=== PATIENT | female | born 2000 | race Caucasian/White ===

== ENCOUNTER 2025-03-09 08:49 | Emergency (ER) | payer BC, SELFPAY ==
[2025-03-09 08:59] VITALS: BP 131/82; PULSE 98; RESP 20; TEMP 36.3; O2SAT 95; BMI 34.5
[2025-03-09 09:13] LABS: Appearance Urine Cloudy (Clear)
[2025-03-09 09:30] LABS: Ammon Biurate Crystals Urine Few; Ur HCG Qualitative* Negative (Negative)
[2025-03-09 09:49] LABS: PCR FLU A Negative PCR FLU A (Negative); PCR FLU B Negative PCR FLU B (Negative); PCR RSV Negative PCR RSV (Negative); SARS PCR* Negative SARS-CoV-2 (Negative)
--- NOTE | 2025-03-09 09:56 | ED_ITS ---
HPI - Abdominal Pain General Time Seen by Provider: 09:56 Date Seen: 03/09/25 Chief Complaint: Abdominal Pain Stated Complaint: Abdominal pain, vomiting Time Seen by Provider: 03/09/25 09:31 Source: patient and RN notes reviewed Mode of arrival: ambulatory Limitations: no limitations History of Present Illness HPI narrative: This 24-year-old female is presenting with vomiting and diarrhea, chills and sweats since this past Sunday, today is Sunday. She states she is unable to eat and drink or take any medicines. Patient believes she may have picked this up at [employer], went Sunday after work and did not wait the cart down. Symptoms started after that. Once she noted a little streaking of blood during a forceful emesis but otherwise has not noted any ongoing him at emesis. No blood in the diarrhea. She does have some abdominal discomfort but not severe, more of a cramping. She urinated this morning, no dysuria. She has had sweats and felt hot, has not actually checked her temperature. She is not aware of any definite ill contacts, no one else around her is getting sick with this. She has had no recent travel, no recent antibiotics, no history of C difficile. She has had no prior abdominal surgery. She states she was recently diagnosed with fatty liver disease. Patient states she just wants to be able to eat. She is on no chronic medications, does take some vitamins but has not been able to keep them down. Related Data Previous Rx's ?Medication ?Instructions ?Recorded ondansetron 4 mg disintegrating 4 mg PO Q6H PRN nausea and 03/09/25 tablet vomiting #20 tabs Allergies Allergy/AdvReac Type Severity Reaction Status Date / Time No Known Drug Allergies Allergy Verified 03/09/25 09:02 Review of Systems Status of ROS Reports: 6 or more systems reviewed and unremarkable except as noted in History and below [facility] Medical History (Updated 03/09/25 @ 12:06 by Eylse Mcintyre MD) Hepatic steatosis ?K76.0 - Fatty (change of) liver, not elsewhere classified (ICD-10) Social History Smoking Status: Never smoker Do you use any of these nicotine containing products: None Second hand tobacco smoke exposure: No How often do you have a drink containing alcohol: never AUDIT-C Alcohol total score: 0 Non-prescribed substance use: denies use Exam Const: Vital Signs, click to edit/add: Vital Signs - 24 hr 03/09/25 08:59 Temperature 97.4 F L Pulse Rate [Pulse Oximeter] 98 Respiratory Rate 20 Blood Pressure [Ri ght Upper Arm] 131/82 Pulse Oximetry 95 Oxygen Delivery Me thod Room Air This 24-year-old female is seen in exam room 1, she is lying in the bed, sitting up and alert, interactive, no apparent distress. Sclera clear, symmetrical facial function, speech normal. Lips are normal, oropharynx is glistening, does not look severely dehydrated. Neck is supple. Lungs clear come good air entry come wheezing or crackles, no tachypnea. CV regular rate and rhythm, no murmur, normal S1-S2. Abdomen is soft, nondistended, nontender, no organomegaly, no rebound or guarding, bowel sounds are present. Skin visualized without any jaundice or rash. Documenting provider has reviewed patient's vital signs: yes Course Course ED Course: This 24-year-old female is presenting with symptoms that seem to be consistent with probable viral gastroenteritis. We will check labs, initiate IV fluids for rehydration and give her a dose of Zofran. We did review if her white count is not concerning, inflammatory markers without significant elevation, will proceed with flat and upright. Otherwise may need to consider abdominal imaging if white count is significantly elevated to look for such things as colitis. Doubt any ischemic bowel in this patient given her age, clinical exam. She does not have any concerning vascular history at her age that would suggest ischemic bowel. More likely to be a viral gastroenteritis. Reevaluation(s) Time of Reevaluation #1: 11:06 Reevaluation #1: Have reviewed patient's white blood count and electrolytes. Her C reactive protein is normal, white blood count low which would be more indicative of viral etiology. Will proceed with flat and upright abdominal imaging, do not feel CT imaging is necessary and on potentiates further risk to this patient with unnecessary radiation. Time of Reevaluation #2: 12:01 Reevaluation #2: Reviewed with patient that her labs are reassuring, white blood count is low which would go with viral etiology. Her C reactive protein and electrolytes are reassuring. She feels much better after the fluids, states she does not feel sweating anymore. She is adamant that she is not constipated. We did review that her abdominal x-ray is showing some stool forming in the right colon. It is possible that she could have more diarrhea or that the diarrhea is going to start abating and she will feel better in go back to normal stools. She would like Zofran sent to her pharmacy, will try to initiate clear liquids with the use of Zofran and advancing her diet as tolerated. She does not have any indications for hospitalization or further workup at this time. We have discussed signs and symptoms for return. Vital Signs Vital signs: Initial Vital Signs Temperature 97.4 F L 03/09/25 08:59 Temperature Source Temporal Artery Scan 03/09/25 08:59 Pulse Rate 98 03/09/25 08:59 Respiratory Rate 20 03/09/25 08:59 Blood Pressure 131/82 03/09/25 08:59 Blood Pressure Mean 98 03/09/25 08:59 Blood Pressure Position Sitting 03/09/25 08:59 Pulse Oximetry 95 03/09/25 08:59 Oxygen Delivery Method Room Air 03/09/25 08:59 Vital Signs Temperature 97.4 F L 03/09/25 08:59 Pulse Rate 98 03/09/25 08:59 Respiratory Rate 20 03/09/25 08:59 Blood Pressure 131/82 03/09/25 08:59 Pulse Oximetry 95 03/09/25 08:59 Oxygen Delivery Method Room Air 03/09/25 08:59 Temperature 97.4 F L 03/09/25 08:59 Pulse Rate 98 03/09/25 08:59 Respiratory Rate 20 03/09/25 08:59 Blood Pressure 131/82 03/09/25 08:59 Pulse Oximetry 95 03/09/25 08:59 Oxygen Delivery Method Room Air 03/09/25 08:59 Medications Administered Medications: Discontinued Medications Generic Name Dose Route Start Last Admin Trade Name Freq PRN Reason Stop Dose Admin Sodium Chloride 1,000 mls @ 1,000 mls/hr 03/09/25 10:04 03/09/25 11:24 0.9 % Sodium Chloride 1000 Ml IV 03/09/25 11:03 Infused .Q1H KARLENE Infusion Ondansetron HCl 4 mg 03/09/25 10:03 03/09/25 10:18 Ondansetron 2 Mg/Ml Inj IVP 03/09/25 10:04 4 mg ONCE ONE Administration MDM - Abdominal Pain Lab Data Attestation: I reviewed the patient's lab results. Labs: Lab Results 03/09/25 03/09/25 03/09/25 Range/Units 09:02 09:05 10:17 WBC 3.31 L (4.50-11.00) K/uL RBC 5.19 (4.00-5.20) m/uL Hgb 14.3 (12.0-16.0) gm/dL Hct 43.4 (33.0-51.0) % MCV 84 (80-100) fL MCH 28 (26-34) pg MCHC 33 (32-36) gm/dL RDW Coeff of Edson 13.0 (11.5-15.5) % Plt Count 175 (140-440) K/uL Neut % (Auto) 45.9 (42.0-72.0) % Lymph % (Auto) 39.9 (20-44) % Evans % (Auto) 12.1 H (0.0-11.0) % Eos % (Auto) 1.2 (0.0-7.0) % Baso % (Auto) 0.6 (0.0-3.0) % Neut # (Auto) 1.50 L (1.7-7.0) K/uL Lymph # (Auto) 1.30 (0.90-2.90) K/uL Evans # (Auto) 0.40 (0.00-0.90) K/UL Eos # (Auto) 0.00 (0.00-0.50) K/uL Baso # (Auto) 0.00 (0.00-0.30) K/uL Abs Immat Gran (auto) 0.00 (0.00-0.30) K/uL Imm/Tot Granulo (auto) 0.3 % Sodium 134 L (135-149) mmol/L Potassium 3.8 (3.6-5.1) mmol/L Chloride 100 (96-114) mmol/L Carbon Dioxide 24 (20-32) mmol/L Anion Gap 10 (7-15) mEq/L BUN 6 (5-24) mg/dL Creatinine 0.7 (0.5-1.5) mg/dL Estimated Creat Clear 115.01 Estimated GFR 123 ml/min Glucose 93 (60-115) mg/dL Lactate 0.7 (0.5-1.9) mmol/L Calcium 8.6 (8.4-10.6) mg/dL Total Bilirubin 0.4 (0.1-1.5) mg/dL AST 32 (12-35) U/L ALT 31 (4-35) U/L Alkaline Phosphatase 64 (40-150) U/L C-Reactive Protein 0.8 (0.5-1.0) mg/dL Total Protein 7.5 (6.0-8.3) g/dL Albumin 4.3 (3.3-5.0) g/dL Urine Color Dark yellow (Yellow) Urine Appearance Cloudy A (Clear) Urine pH 5.5 (5.0-8.5) Ur Specific Conway >= 1.030 (1.000-1.030) Urine Protein 3+ A (Negative) Urine Glucose (UA) Negative (Negative) Urine Ketones Negative (Negative) Urine Blood 2+ A (Negative) Urine Nitrite Negative (Negative) Urine Bilirubin Negative (Negative) Urine Urobilinogen 0.2 (0.2-1.0) Ur Leukocyte Esterase Negative (Negative) Urine RBC 5-10 A (0-2) Urine WBC 2-5 (0-5) Ur Squamous Epith Cells Moderate A (None-Few) Broussard Biurate Crystals Few A (None) Urine Bacteria Moderate A (None) Urine Mucus Few A (None) Urine HCG, Qual Negative (Negative) SARS-CoV-2 (PCR) Negative SARS-CoV-2 (Negative) Influenza Type A (PCR) Negative PCR FLU A (Negative) Influenza Type B (PCR) Negative PCR FLU B (Negative) RSV (PCR) Negative PCR RSV (Negative) Imaging Data Abdominal x-ray: Attestation: I have reviewed the pertinent imaging results. Radiologist's impression: Patient: JOSE A OJEDA Facility:?[facility] Patient ID:?[id number] Site Patient ID:?[id number]. Site :?[id number] Study:?XRay-Abdomen flat/upright-03/09/2025 11:22:27 AM Ordering Physician:Kang Pappas Final Report: Indication: N/V/D Technique: 2 AP views of the abdomen. Three total images. Comparison: None. Findings: Moderate stool burden is seen in the right colon. Nonobstructive bowel gas pattern. No large pneumoperitoneum. Visualized lung bases are clear. Impression: Moderate stool burden is seen in the right colon. Nonobstructive bowel gas pattern. Dictated by Julio Parra MD @ 03/09/2025 11:40:49 AM (Electronic Signature) Discharge Plan Discharge Clinical Impression: Nausea, vomiting, and diarrhea Patient Disposition: Home, Self-Care Condition: Stable Instructions: Acute Nausea and Vomiting (ED), Acute Diarrhea (ED), Nutrition Tips for Relief of Diarrhea (ED) Additional Instructions: You very likely have a viral gastrointestinal illness causing her symptoms. Use the Zofran per prescription to allow you to taking clear liquids to start with. As you are feeling better, can advance your diet back to normal. Would avoid any antidiarrheals until a week of symptoms have gone by. If you are not improving in the next few days, have increased abdominal pain associated with further vomiting or with development of fever, need to seek re-evaluation. Activity Level: Activity as Tolerated Prescriptions: New ondansetron 4 mg tablet,disintegrating 4 mg PO Q6H PRN (Reason: nausea and vomiting) Qty: 20 0RF Follow Up/Referrals: Provider,Not a Local [Primary Care Provider, Family Practice] Stand Alone Forms: [facility] Info Instructions
[2025-03-09] MEDS: ONDANSETRON 2 MG/ML inj 4 MG IVP (10:18)
[2025-03-09 10:26] LABS: Lactate* 0.7 mmol/L (0.5-1.9)
[2025-03-09 10:27] LABS: Hematocrit* 43.4 % (33.0-51.0); Hemoglobin* 14.3 gm/dL (12.0-16.0); Immature Granulocytes Pct Auto 0.3 %; Mean Corpuscular HGB Conc 33 gm/dL (32-36); Mean Corpuscular Hemoglobin 28 pg (26-34); Mean Corpuscular Volume 84 fL (80-100); RDW Coefficient of Variation % 13.0 % (11.5-15.5); Red Blood Count* 5.19 m/uL (4.00-5.20); White Blood Count* 3.31 K/uL (4.50-11.00)
--- OUTSIDE RECORDS SUMMARY | 2025-03-09 10:43 | XMS_ITS | Clinical Summary ---
Author Organization [facility] Address [address] [place] [id number] Care Team Providers Care Precision Dancer Name Role Phone Cris Juarez MD Primary Care Provide r Brandan Meneses MD Unavailable [phone] Leonie Matthew RN Unavailable [phone] Unavailable [phone] Allergies Active Allergy Reactions Criticality Noted Date Comments Ibuprofen Dizziness,Syncope Low 04/17/2017 Wants removed Medications fluocinonide 0.05 TOPICAL (LIDEX) 0.05 % external solutionIndicat ions:Seborrheic dermatitis Apply topically to affected area(s) two times daily. 60 mL 3 4 Active CPAPIndications :JOSE CARLOS (obstructive sleep apnea) RESMED CPAP (E0601) machine for home use at pressure: 5-15cmw, Choice of mask (A7030 or A7034) w/full face cushion (A7031) x1/mo, nasal cushion (A7032) x2/mo, or nasal pillows (A7033) x 2/mo; Length of Need: 99 months; Frequency of use: Daily 1 Each 5 Active ketoconazole 2% shampoo (NIZORAL) 2 % shampooIndicati ons:Dry scalp,Seborrhei c dermatitis Apply topically to affected area(s) once daily if needed for Dry Scalp. 2-3 times per week 120 mL 5 4 02/09/20 25 Discontinu ed(*Med complete/R egimen complete/L evel of care change) Hospital, Clinic, or Other Facility Administered Medication Ordered Dose Route Frequency Start Date End Date Status etonogestrel subdermal implant (NEXPLANON) 1 EachIndications:Uses contraception 1 Each Sdrm Q 3 YEARS 10/01/2020 Active Active Problems Problem Noted Date Diagnosed Date Hepatic steatosis 02/24/2025 Cervical cancer screening 03/27/2024 Overview (03/27/2024): 03/2024 NIL Plan: HPV based testing in 3 years 02/02/2020 Overview (08/06/2020): Component Latest Ref Rng & Units 08/02/2020 Vaginal/Rectal OB Strep B PCR Positive (A) Estimated Date of Delivery: 09/07/20 Patient's last menstrual period was 12/02/2019 (exact date). Last Tdap- 06/23/2020 Last Flu vaccine- 03/02/2015 Glucose (GTT) result- Component Latest Ref Rng & Units 05/26/2020 GLUCOSE,GESTATIONAL 65 - 139 mg/dL 65 20 week US: FINDINGS: Sonographic imaging demonstrates a single living intrauterine gestation. Fetus demonstrates a regular cardiac rate of 141 beats per minute. Fetus has a vertex position. The placenta lies anteriorly without evidence of placenta previa. Amniotic fluid volume appears normal. Single deepest vertical pocket: 4.9 cm. The cervix is closed and measures 3.7 cm in length. The composite ultrasound gestational age is calculated at 20 weeks 3 days with an estimated sonographic due date of 08/27/2020. Allergies Allergen Reactions Motrin [Ibuprofen] Syncope OB History Para Term AB Living 1 0 0 0 0 0 SAB TAB Ectopic Multiple Live Births 0 0 0 0 0 # Outcome Date GA Lbr Chad/2nd Weight Sex Delivery Anes PTL Lv 1 Current Create lab flowsheet for OB labs- Component Latest Ref Rng & Units 01/13/2020 01/13/2020 01/13/2020 3:51 PM 3:51 PM 3:51 PM ANTIBODY SCREEN Negative Negative SPECIMEN EXPIRATION DATE/TIME 01/16/20 23:59 HEMOGLOBIN 12.0 - 16.0 g/dL 13.4 MCV 80 - 100 fL 84 PLATELET COUNT 140 - 440 thou/cu mm 231 MPV 6.5 - 11.0 fL 10.3 RUBELLA IGG ANTIBODY Positive 11.00 HEMOGLOBIN A1C SCREENING <=6.4 % 4.9 ABORH B Rh Positive HBSAG Nonreactive Nonreactive HEPATITIS C ANTIBODY Non-Reactive Non-Reactive HIV-1/HIV-2 ANTIBODY Non-Reactive Non-Reactive TREPONEMA PALLIDUM Negative Negative Past Medical History: . Date Luis A-Schlatter's disease 06/05/2014 No past surgical history on file. No data on file. Problems (from 01/13/20 to present) No problems associated with this episode. RADHA Carrasco.....02/02/2020 11:20 AM Aspiration pneumonitis 08/31/2019 Pain of right patellofemoral joint 06/13/2016 Irregular menses 08/03/2015 [place]-Schlatter's disease 06/05/2014 Accidental drug overdose Resolved Problems Problem Noted Date Diagnosed Date Resolved Date Acute respiratory failure with hypoxemia 08/31/2019 08/02/2020 Heroin overdose 08/30/2019 01/04/2024 Patellar tendinitis, right knee 12/07/2015 06/13/2016 Encounters Date Type Department Care Team Description 03/06/2025 2:00 PM HEALTH ANALYTICS CONSULTANT Telemedicine [facility] Weight Management [address] [place] [phone] Peggy Saldaña RD Medical Nutrition Therapy (SWL follow up ) 03/06/2025 Travel 02/24/2025 Orders Only [facility] [address] [facility] [address] [place] [address] Brandan Meneses MD Weight; Lab 02/20/2025 2:45 PM HEALTH ANALYTICS CONSULTANT Orders Only [facility] [address] [facility] [place] [phone] Karissa Gamez <No scans attached> 02/20/2025 8:15 AM HEALTH ANALYTICS CONSULTANT Ancillary Procedure [facility] [address] [place] [address] 02/20/2025 Travel 02/17/2025 11:15 AM HEALTH ANALYTICS CONSULTANT Telemedicine [facility] [address] [facility] [address] [place] [address] Sav Minor, PhD, Mental Health Intake 02/03/2025 2:00 PM CDT Telemedicine [facility] [address] [place] [address] [address] [place] [address] Peggy Saldaña RD Medical Nutrition Therapy (SWL initial ) 02/03/2025 1:30 PM CDT Phone Office Visit [address] [address] Leonie Matthew, GANESH Education (Initial Nurse) 02/03/2025 1:00 PM CDT Telemedicine [address] [place] [address] Brandan Meneses MD Consult (Initial- SWL, gastric bypass) 02/03/2025 Travel 01/01/[address] [address] Brandan Meneses MD Bariatric Insurance Verification/Requi rements 12/16/2024 9:30 AM CDT Telemedicine [facility] [address] [place] [address] Marcos Santizo MD Sleep Consult; Telehealth (Virtual visit, no vitals taken.) 12/08/2024 7:30 AM CDT Nurse/Clinic Staff Only [facility] [address] [place] [address] Testing (HST return) 12/08/2024 Telephone [facility] [address] [place] [address] Marcos Santizo MD Testing 12/08/2024 Travel from Last 3 Months Immunizations Immunization Administration Dates Next Due DTaP 10/23/2003, 3,02/15/2002,02/15 HPV 9 (Gardasil 9) 07/07/2016,04/06/2015, 015 Hepatitis A (Peds) 04/06/2015,03/02/2015 Hepatitis B (Peds) 12/29/2002,02/14/2002, 000 Inactivated Polio Vaccine 04/06/2015,,02/15/2002,02/15 Influenza A (H1N1), Inactivated 04/01/2009,03/04 Influenza, IIV4 03/02/2022,03/02/2015 MENINGOCOCCAL VACCINE 2 VIAL [id number] (MENVEO) 01/12/2012 MMR 01/12/2012,12/30/2002 Tdap 06/23/2020,01/12/2012 Varicella Vaccine 01/12/2012,12/17/2003 Family History Medical History Relation Name Comments Anxiety disorder Brother Depression Brother Anxiety disorder Father Drug Abuse Father Relation Name Status Comments Brother Father Social History Tobacco Use Types Packs/Day Years Used Date Smoking Tobacco: Former Cigarettes Q uit: 02/14/2019 Smokeless Tobacco: Never Tobacco Cessation:Counseling Given: Not Answered Alcohol Use Standard Drinks/Week Comments No 0 (1 standard drink = 0.6 oz pur e alcohol) 4 beers once a month PHQ-2 Answer Date Recorded PHQ-2 TOTAL SCORE 0 03/18/2024 Social Connections Answer Date Recorded Do you often feel lonely or isolated from those around you? 0 03/18/2024 Alcohol Use Answer Date Recorded How often do you have a drink containing alcohol ? 2 02/03/2025 Average Number of Drinks Not on file 025 Frequency of Binge Drinking Not on file 01/15 Financial Resource Strain Answer Date R ecorded Difficulty of Paying Living Expenses 3 03/18/2024 Difficulty of Paying Living Expenses Not on file 03/18/2024 Food Insecurity Answer Date Recorded Do you worry your food will run out before you are able to buy more? 1 03/18/2024 Transportation Needs Answer Date Record ed Does lack of transportation keep you from medica l appointments? 1 03/18/2024 Does lack of transportation keep you from work, meetings or getting things that you need? 1 03/18/2024 Housing Stability Answer Date Recorded What is your housing situation today? 1 03/18/2024 Utilities Answer Date Recorded Do you have trouble paying f or utilities (for example, heat, electricity, water, phone)? 1 03/18/2024 Comments No Sex and Gender Information Value Date Recorded Sex Assigned at Not on file Legal Sex Female 5:41 AM HEALTH ANALYTICS CONSULTANT Gender Identity Not on file Sexual Orientation Not on file Obstetrics History Para Term AB IAB SAB Ectopic Multiple Livin g Live Births 1 0 0 0 0 0 0 0 0 0 0 Date Outcome GA Total Labor Labor/2nd/3rd Weight Sex Type Anes PTL Rosemarie A1 A5 Name Clin Last Filed Vital Signs Vital Sign Reading Time Taken Comments Blood Pressure 117/74 03/18/2024 3:31 PM HEALTH ANALYTICS CONSULTANT Pulse 74 03/18/2024 3:31 PM HEALTH ANALYTICS CONSULTANT Temperature 36.5 C (97.7 F) 02/28/2021 10:01 AM HEALTH ANALYTICS CONSULTANT Respiratory Rate 16 09/03/2019 12:00 PM CDT Oxygen Saturation 99% 03/18/2024 3:31 PM HEALTH ANALYTICS CONSULTANT Inhaled Oxygen Concentration - - Weight 104.3 kg (230 lb) 02/03/2025 2:00 PM CDT Height 165.1 cm (5' 5) 03/06/2025 1:00 PM HEALTH ANALYTICS CONSULTANT Body Mass Index 38.27 02/03/2025 2:00 PM CDT Plan of Treatment Upcoming Encounters Date Type Department Care Team (Late st Contact Info) Description 03/23/2025 2:30 PM HEALTH ANALYTICS CONSULTANT Office Visit [facility] [address] [place] [address] Marcos Santizo MD [address] [place] [address] 04/06/2025 3:00 PM HEALTH ANALYTICS CONSULTANT Telemedicine [facility] Weight Management - [place] [address] [place] [phone] Peggy Saldaña, PHI [address] [place], [place] [phone] 05/08/2025 2:30 PM HEALTH ANALYTICS CONSULTANT Telemedicine [facility] Weight Management - [place] [address] [place] [phone] Peggy Saldaña, PHI [address] [place], [place] [phone] Health Maintenance Due Date Last Done Comments Influenza Vaccine (#1) 2024 03/02/2022, 2014 Depression screening for age 12+ 03/18/2025 03/18/2024, 03/20/2023, 10/14/2021, Additional history exists BMI (ht and wt on same day) for age 18+ 02/03/2026 02/03/2025, 02/03/2025, 01/30/2025, Additional history exists Pap test for age 21-65 03/18/2027 03/18/2024 Tetanus booster 06/23/2030 06/23/2020, 01/12/2012 RSV vaccine for adults or (1 - 1-dose 75+ series) 07/30/2074 Hepatitis B series for 19+ Completed 12/29, 02/14/2002, 02/16/2000 HPV series for age 9-45 Completed 07/08/19 17, 04/06/2015, 03/02/2015 HIV for age 15-65 Completed 03/18/2024, , 06/23/2020, Additional history exists Hepatitis C screening for age 18-79 Completed 03/18/2024, 01/13/2020, 10/23/2019, Additional history exists Pneumococcal series for age 6-49 Aged Out No longer eligible based on patient's age to complete this topic Procedures Procedure Name Priority Date/Time Associated Diagnosis Comments VITAMIN D 25 (DEFICIENCY) Routine 02/20/2025 2:53 PM HEALTH ANALYTICS CONSULTANT Screening for endocrine, metabolic and immunity disorder VITAMIN B12 Routine 02/20/2025 2:53 PM HEALTH ANALYTICS CONSULTANT Screening for endocrine, metabolic and immunity disorder TSH Routine 02/20/2025 2:53 PM HEALTH ANALYTICS CONSULTANT Screening for endocrine, metabolic and immunity disorder LIPID PANEL W REFLEX MEASURED LDL Routine 02/20/2025 2:53 PM HEALTH ANALYTICS CONSULTANT Screening for endocrine, metabolic and immunity disorder IRON PLUS IRON BINDING CAP Routine 02/20/2025 2:53 PM HEALTH ANALYTICS CONSULTANT Screening for endocrine, metabolic and immunity disorder INSULIN Routine 02/20/2025 2:53 PM HEALTH ANALYTICS CONSULTANT Screening for endocrine, metabolic and immunity disorder HEMOGLOBIN A1C Routine 02/20/2025 2:53 PM HEALTH ANALYTICS CONSULTANT Screening for endocrine, metabolic and immunity disorder FERRITIN Routine 02/20/2025 2:53 PM HEALTH ANALYTICS CONSULTANT Screening for endocrine, metabolic and immunity disorder COMP METABOLIC PANEL Routine 02/20/2025 2:53 PM HEALTH ANALYTICS CONSULTANT Obesity, unspecified class, unspecified obesity type, unspecified whether serious comorbidity present Screening for endocrine, metabolic and immunity disorder CBC AND DIFF NO PLT Routine 02/20/2025 2 :53 PM HEALTH ANALYTICS CONSULTANT Screening for endocrine, metabolic and immunity disorder US ABDOMEN LIMITED GALLBLADDER Routine 02/20/2025 9:37 AM HEALTH ANALYTICS CONSULTANT Gastroesophageal reflux disease, unspecified whether esophagitis present Vomiting, unspecified vomiting type, unspecified whether nausea present H[employer]EL FR[employer] OFFICE MANAGER THIN PREP PAP SCREEN IMAGED Routine 03/18/2024 4:56 PM HEALTH ANALYTICS CONSULTANT Pap smear for cervical cancer screening ANTI HIV 1/2 Routine 03/18/2024 4:52 PM HEALTH ANALYTICS CONSULTANT Screen for STD (sexually transmitted disease) ANTI HCV Routine 03/18/2024 4:52 PM HEALTH ANALYTICS CONSULTANT Screen for STD (sexually transmitted disease) from Last 3 Months or Most Recently Relevant to Health Maintenance Results * HEMOGLOBIN A1C (02/20/2025 2:53 PM HEALTH ANALYTICS CONSULTANT) HEMOGLOBIN A1C 5.1 <5.7 % 02/21/2025 5:43 AM HEALTH ANALYTICS CONSULTANT [facility] Comment: For the purpose of screening for the presence of diabetes: <5.7% Consistent with the absence of diabetes 5.7-6.4% Consistent with increased risk for diabetes (prediabetes) > or =6.5% Consistent with diabetes This assay result is consistent with a decreased risk of diabetes. Currently, no consensus exists regarding use of hemoglobin A1c for diagnosis of diabetes in children. According to [place] Diabetes Association (ADA) guidelines, hemoglobin A1c <7.0% represents optimal control in non- diabetic patients. Different metrics may apply to specific patient populations. Standards of Medical Care in Diabetes(ADA). Blood BLOOD SPECIMEN / Unknown [facility] / Unknown 02/20/2025 2:53 PM HEALTH ANALYTICS CONSULTANT 02/20/2025 2:53 PM HEALTH ANALYTICS CONSULTANT Brandan Meneses MD CHEMISTRY Final Result [facility] [address] [place] [address], * (ABNORMAL) LIPID PANEL W REFLEX MEASURED LDL (02/20/2025 2:53 PM HEALTH ANALYTICS CONSULTANT) Pathologist [facility] CHOLESTEROL, TOTAL 201(H) <200 mg/dL 02/21/2025 5:41 AM [facility] TRIGLYCERIDES 286(H) <150 mg/dL 02/21/2025 5:41 AM [facility] Comment: If a non-fasting specimen was collected, consider repeat triglyceride testing on a fasting specimen if clinically indicated. Self et al. J. of Clin. Lipidol. 2015;9:129-169. HDL CHOLESTEROL 51 > OR = 50 mg/dL 02/21/2025 5:41 AM [facility] NON HDL CHOLESTEROL 150(H) <130 mg/dL (calc) 02/21/2025 5:41 AM [facility] Comment: For patients with diabetes plus 1 major ASCVD risk factor, treating to a non-HDL-C goal of <100 mg/dL (LDL-C of <70 mg/dL) is considered a therapeutic option. CHOL/HDLC RATIO 3.9 <5.0 (calc) 02/21/2025 5:41 AM [facility] LDL-CHOLESTEROL 109(H) mg/dL (calc) 02/21/2025 5:41 AM [facility] Comment: Reference range: <100 Desirable range <100 mg/dL for primary prevention; <70 mg/dL for patients with CHD or diabetic patients with > or = 2 CHD risk factors. LDL-C is now calculated using the José Miguel-Hernandez calculation, which is a validated novel method providing better accuracy than the Friedewald equation in the estimation of LDL-C. José Miguel SS et al. HELLEN. 2013;31019): 4775-3641 (http://[email or web address]/faq/BRG308) Blood BLOOD SPECIMEN / Unknown [facility] / Unknown 02/20/2025 2:53 PM HEALTH ANALYTICS CONSULTANT 02/20/2025 2:53 PM HEALTH ANALYTICS CONSULTANT Brandan Meneses MD CHEMISTRY Final Result Performing Organization Address [facility] Co de Phone Number [employer] [address] [address], [place] [phone] * (ABNORMAL) VITAMIN D 25 (DEFICIENCY) (02/20/2025 2:53 PM HEALTH ANALYTICS CONSULTANT) VITAMIN D,25-OH,TOTAL,IA 6(L) 30 - 100 ng/mL 02/21/2025 5:53 AM HEALTH ANALYTICS CONSULTANT [facility] Comment: Vitamin D Status 25-OH Vitamin D: Deficiency: <20 ng/mL Insufficiency: 20 - 29 ng/mL Optimal: > or = 30 ng/mL For 25-OH Vitamin D testing on patients on D2-supplementation and patients for whom quantitation of D2 and D3 fractions is required, the QuestAssureD(TM) 25-OH VIT D, (D2,D3), LC/MS/MS is recommended: order code [id number] (patients >2yrs). See Note 1 Note 1 For additional information, please refer to http://[email or web address]/faq/SYI527 (This link is being provided for informational/ educational purposes only.) Blood BLOOD SPECIMEN / Unknown [facility] / Unknown 02/20/2025 2:53 PM HEALTH ANALYTICS CONSULTANT 02/20/2025 2:53 PM HEALTH ANALYTICS CONSULTANT us Brandan Meneses MD SEND OUTS Final Result Performing Organization Address [facility]/ZIP Co de Phone Number [employer] [address] [address], * (ABNORMAL) CBC AND DIFF NO PLT (02/20/2025 2:53 PM HEALTH ANALYTICS CONSULTANT) Pathologist [facility] WHITE BLOOD CELL COUNT 7.3 3.8 - 10.8 Thousand/ uL 02/21/2025 3:49 AM HEALTH ANALYTICS CONSULTANT [facility] RED BLOOD CELL COUNT 5.29(H) 3.80 - 5.10 Million/u L 02/21/2025 3:49 AM HEALTH ANALYTICS CONSULTANT [facility] HEMOGLOBIN 15.2 11.7 - 15.5 g/dL 02/21/2025 3:49 AM HEALTH ANALYTICS CONSULTANT [facility] HEMATOCRIT 45.1(H) 35.0 - 45.0 % 02/21/2025 3:49 AM HEALTH ANALYTICS CONSULTANT [facility] MCV 85.3 80.0 - 100.0 fL 02/21/2025 3:49 AM HEALTH ANALYTICS CONSULTANT [facility] MCH 28.7 27.0 - 33.0 pg 02/21/2025 3:49 AM HEALTH ANALYTICS CONSULTANT [facility] MCHC 33.7 32.0 - 36.0 g/dL 02/21/2025 3:49 AM HEALTH ANALYTICS CONSULTANT [facility] Comment: For adults, a slight decrease in the calculated MCHC value (in the range of 30 to 32 g/dL) is most likely not clinically significant; however, it should be interpreted with caution in correlation with other red cell parameters and the patient's clinical condition. NEUTROPHILS 51.7 % 02/21/2025 3:49 AM HEALTH ANALYTICS CONSULTANT [facility] LYMPHOCYTES 38.6 % 02/21/2025 3:49 AM HEALTH ANALYTICS CONSULTANT [facility] MONOCYTES 7.4 % 02/21/2025 3:49 AM HEALTH ANALYTICS CONSULTANT [facility] EOSINOPHILS 1.8 % 02/21/2025 3:49 AM HEALTH ANALYTICS CONSULTANT [facility] BASOPHILS 0.5 % 02/21/2025 3:49 AM HEALTH ANALYTICS CONSULTANT [facility] ABSOLUTE NEUTROPHILS 3774 1500 - 7800 cells/uL 02/21/2025 3:49 AM HEALTH ANALYTICS CONSULTANT [facility] ABSOLUTE LYMPHOCYTES 2818 850 - 3900 cells/uL 02/21/2025 3:49 AM HEALTH ANALYTICS CONSULTANT [facility] ABSOLUTE MONOCYTES 540 200 - 950 cells/uL 02/21/2025 3:49 AM HEALTH ANALYTICS CONSULTANT [facility] ABSOLUTE EOSINOPHILS 131 15 - 500 cells/uL 02/21/2025 3:49 AM HEALTH ANALYTICS CONSULTANT [facility] ABSOLUTE BASOPHILS 37 0 - 200 cells/uL 02/21/2025 3:49 AM HEALTH ANALYTICS CONSULTANT [facility] Blood BLOOD SPECIMEN / Unknown [facility] / Unknown 02/20/2025 2:53 PM HEALTH ANALYTICS CONSULTANT 02/20/2025 2:53 PM HEALTH ANALYTICS CONSULTANT us Brandan Meneses MD HEMATOLOGY Final Result Performing Organization Address City/[facility]/ZIP Co de Phone Number [facility] [address] [place] [address], [place] [phone] * TSH (02/20/2025 2:53 PM HEALTH ANALYTICS CONSULTANT) [facility] TSH 2.04 mIU/L 02/21/2025 5:53 AM HEALTH ANALYTICS CONSULTANT [facility] Comment: Reference Range > or = 20 Years 0.40-4.50 Ranges First trimester 0.26-2.66 Second trimester 0.55-2.73 Third trimester 0.43-2.91 Blood BLOOD SPECIMEN / Unknown [facility] / Unknown 02/20/2025 2:53 PM HEALTH ANALYTICS CONSULTANT 02/20/2025 2:53 PM HEALTH ANALYTICS CONSULTANT us Brandan Meneses MD CHEMISTRY Final Result Performing Organization Address [facility] Co de Phone Number [facility] [address] [address], [place] [phone] * IRON PLUS IRON BINDING CAP (02/20/2025 2:53 PM HEALTH ANALYTICS CONSULTANT) [facility] IRON, TOTAL 74 40 - 190 mcg/dL 02/21/2025 5:41 AM HEALTH ANALYTICS CONSULTANT [facility] IRON BINDING CAPACITY 420 250 - 450 mcg/dL (calc) 02/21/2025 5:41 AM HEALTH ANALYTICS CONSULTANT [facility] % SATURATION 18 16 - 45 % (calc) 02/21/2025 5:41 AM HEALTH ANALYTICS CONSULTANT [facility] Blood BLOOD SPECIMEN / Unknown [facility] / Unknown 02/20/2025 2:53 PM HEALTH ANALYTICS CONSULTANT 02/20/2025 2:53 PM HEALTH ANALYTICS CONSULTANT us Brandan Meneses MD CHEMISTRY Final Result Performing Organization Address City/[facility]/ZIP Co de Phone Number [facility] [address] [address], [place] [phone] * (ABNORMAL) INSULIN (02/20/2025 2:53 PM HEALTH ANALYTICS CONSULTANT) [facility] INSULIN 194.0(H) uIU/mL 02/23/2025 11:36 AM HEALTH ANALYTICS CONSULTANT [facility] Comment: Reference Range < or = 18.4 Risk: Optimal < or = 18.4 Moderate NA High >18.4 Adult cardiovascular event risk category cut points (optimal, moderate, high) are based on Insulin Reference Interval studies performed at [facility] [email or web address] in 2021. Blood BLOOD SPECIMEN / Unknown [facility] / Unknown 02/20/2025 2:53 PM HEALTH ANALYTICS CONSULTANT 02/20/2025 2:53 PM HEALTH ANALYTICS CONSULTANT us Brandan Meneses MD SEND OUTS Final Result Performing Organization Address [facility]/ZIP Co de Phone Number [facility] [address] [address], * FERRITIN (02/20/2025 2:53 PM HEALTH ANALYTICS CONSULTANT) [facility] FERRITIN 31 16 - 154 ng/mL 02/21/2025 5:53 AM HEALTH ANALYTICS CONSULTANT [facility] Blood BLOOD SPECIMEN / Unknown [facility] / Unknown 02/20/2025 2:53 PM HEALTH ANALYTICS CONSULTANT 02/20/2025 2:53 PM HEALTH ANALYTICS CONSULTANT us Brandan Meneses MD CHEMISTRY Final Result Performing Organization Address [facility]/ZIP Co de Phone Number [facility] [address] [address], * VITAMIN B12 (02/20/2025 2:53 PM HEALTH ANALYTICS CONSULTANT) [facility] VITAMIN B12 372 200 - 1100 pg/mL 02/21/2025 5:53 AM HEALTH ANALYTICS CONSULTANT [facility] Comment: Please Note: Although the reference range for vitamin B12 is 200-1100 pg/mL, it has been reported that between 5 and 10% of patients with values between 200 and 400 pg/mL may experience neuropsychiatric and hematologic abnormalities due to occult B12 deficiency; less than 1% of patients with values above 400 pg/mL will have symptoms. Blood BLOOD SPECIMEN / Unknown [facility] / Unknown 02/20/2025 2:53 PM HEALTH ANALYTICS CONSULTANT 02/20/2025 2:53 PM HEALTH ANALYTICS CONSULTANT Brandan Meneses MD CHEMISTRY Final Result [facility] [place] [id number] [place] [address], * COMP METABOLIC PANEL (02/20/2025 2:53 PM HEALTH ANALYTICS CONSULTANT) SODIUM 139 135 - 146 mmol/L 02/21/2025 5:41 AM HEALTH ANALYTICS CONSULTANT [facility] POTASSIUM 3.9 3.5 - 5.3 mmol/L 02/21/2025 5:41 AM HEALTH ANALYTICS CONSULTANT [facility] CHLORIDE 104 98 - 110 mmol/L 02/21/2025 5:41 AM HEALTH ANALYTICS CONSULTANT [facility] CARBON DIOXIDE 24 20 - 32 mmol/L 02/21/2025 5:41 AM HEALTH ANALYTICS CONSULTANT [facility] GLUCOSE 91 65 - 99 mg/dL 02/21/2025 5:41 AM HEALTH ANALYTICS CONSULTANT [facility] Comment: Fasting reference interval CALCIUM 9.3 8.6 - 10.2 mg/dL 02/21/2025 5:41 AM HEALTH ANALYTICS CONSULTANT [facility] CREATININE 0.72 0.50 - 0.96 mg/dL 02/21/2025 5:41 AM HEALTH ANALYTICS CONSULTANT [facility] BUN/CREATININE RATIO SEE NOTE: 6 - 22 (calc) 02/21/2025 5:41 AM HEALTH ANALYTICS CONSULTANT [facility] Comment: Not Reported: BUN and Creatinine are within reference range. EGFR 119 > OR = 60 mL/min/1. 73m2 02/21/2025 5:41 AM HEALTH ANALYTICS CONSULTANT [facility] ALBUMIN 4.5 3.6 - 5.1 g/dL 02/21/2025 5:41 AM HEALTH ANALYTICS CONSULTANT [facility] PROTEIN, TOTAL 7.4 6.1 - 8.1 g/dL 02/21/2025 5:41 AM HEALTH ANALYTICS CONSULTANT [facility] BILIRUBIN, TOTAL 0.5 0.2 - 1.2 mg/dL 02/21/2025 5:41 AM HEALTH ANALYTICS CONSULTANT [facility] ALKALINE PHOSPHATASE 78 31 - 125 U/L 02/21/2025 5:41 AM HEALTH ANALYTICS CONSULTANT [facility] ALT 16 6 - 29 U/L 02/21/2025 5:41 AM HEALTH ANALYTICS CONSULTANT [facility] AST 15 10 - 30 U/L 02/21/2025 5:41 AM HEALTH ANALYTICS CONSULTANT [facility] UREA NITROGEN (BUN) 8 7 - 25 mg/dL 02/21/2025 5:41 AM HEALTH ANALYTICS CONSULTANT [facility] GLOBULIN 2.9 1.9 - 3.7 g/dL (calc) 02/21/2025 5:41 AM HEALTH ANALYTICS CONSULTANT [facility] ALBUMIN/GLOBULI N RATIO 1.6 1.0 - 2.5 (calc) 02/21/2025 5:41 AM HEALTH ANALYTICS CONSULTANT [facility] Blood BLOOD SPECIMEN / Unknown [facility] / Unknown 02/20/2025 2:53 PM HEALTH ANALYTICS CONSULTANT 02/20/2025 2:53 PM HEALTH ANALYTICS CONSULTANT us Brandan Meneses MD CHEMISTRY Final Result [facility] [id number] [place] [address], * US ABDOMEN LIMITED GALLBLADDER (02/20/2025 9:37 AM HEALTH ANALYTICS CONSULTANT) Anatomical Region Laterality Modality Abdomen Ultrasound 02/20/2025 10:1 1 AM HEALTH ANALYTICS CONSULTANT Impressions 02/20/2025 10:11 AM HEALTH ANALYTICS CONSULTANT Hepatic steatosis. Remainder unremarkable. Dictated by Juan Ramon Eden MD @ 02/20/2025 10:11:54 AM (Electronically Signed) Narrative 02/20/2025 10:11 AM HEALTH ANALYTICS CONSULTANT For Patients: As a result of the Century Cures Act, medical imaging exams and procedure reports are released immediately into your electronic medical record. You may view this report before your referring provider. If you have questions, please contact your health care provider. INDICATION: Gastroesophageal reflux disease, unspecified whether esophagitis present COMPARISON: none TECHNIQUE: Real time wagner scale imaging and color Doppler analysis was performed of the right upper quadrant. FINDINGS: The liver echotexture is diffusely increased. Focal area of fatty sparing is present adjacent to the gallbladder which measures 2.4 x 1.1 x 1.3 cm. There is a normal appearance of the hepatic IVC and proximal abdominal aorta. There is no evidence of ascites. The gallbladder is of normal size and there is no evidence of intraluminal stones or sludge. The gallbladder wall measures 2 mm in thickness. The common bile duct is of normal size and measures 2 mm in diameter at the level of the rodolfo hepatis. The visualized pancreas appears normal. There is no evidence of a stone or hydronephrosis within the right kidney. The right kidney measures 11.9 cm in length. Procedure Note Juan Ramon Eden MD - 02/20/2025 For Patients: As a result of the Cures Act, medical imagingexams and procedure reports are released immediately into your electronicmedical record. You may view this report before your referring provider.If you have questions, please contact your health care provider. INDICATION: Gastroesophageal reflux disease, unspecified whether esophagitis present COMPARISON: none TECHNIQUE: Real time wagner scale imaging and color Doppler analysis was performed ofthe right upper quadrant. FINDINGS: The liver echotexture is diffusely increased. Focal area of fatty sparingis present adjacent to the gallbladder which measures 2.4 x 1.1 x 1.3 cm.There is a normal appearance of the hepatic IVC and proximal abdominalaorta. There is no evidence of ascites. The gallbladder is of normal sizeand there is no evidence of intraluminal stones or sludge. Thegallbladder wall measures 2 mm in thickness. The common bile duct is ofnormal size and measures 2 mm in diameter at the level of the portahepatis. The visualized pancreas appears normal. There is no evidence ofa stone or hydronephrosis within the right kidney. The right kidneymeasures 11.9 cm in length. IMPRESSION: Hepatic steatosis. Remainder unremarkable. Dictated by Juan Ramon Eden MD @ 02/20/2025 10:11:54 AM (Electronically Signed) us Brandan Meneses MD Final Result * HOTEL FRONT OFFICE MANAGER THIN PREP PAP SCREEN IMAGED (03/18/2024 4:56 PM HEALTH ANALYTICS CONSULTANT) Case Report Gynecologic Cytology Report Case: [id number] Authorizing Provider: Cris Juarez, Collected: 03/18/2024 Filippo AMAYA Ordering Location: [facility] Received: 03/18/20246 Clinic First Screen: Caryl Moore Pathologist: TessyDorothy Queen MD Specimen: HOTEL FRONT OFFICE MANAGER ThinPrep Vial Screening, Cervical 03/27/2024 4:26 PM HEALTH ANALYTICS CONSULTANT [facility] INTERPRETATION/ RESULT NEGATIVE FOR INTRAEPITHELIAL LESION OR MALIGNANCY (NIL) (none) 03/27/2024 4:26 PM HEALTH ANALYTICS CONSULTANT [facility] at 1626 HEALTH ANALYTICS CONSULTANT OTHER NON-NEOPLASTIC FINDING(S) Reactive cellular changes associated with inflammation/repa ir 03/27/2024 4:26 PM HEALTH ANALYTICS CONSULTANT [facility] ORGANISM(S) Shift in chas suggestive of bacterial vaginosis 03/27/2024 4:26 PM HEALTH ANALYTICS CONSULTANT [facility] SPECIMEN ADEQUACY Satisfactory for evaluation Endocervical component present 03/27/2024 4:26 PM HEALTH ANALYTICS CONSULTANT [facility] Date of LMP NA 03/27/2024 4:26 PM HEALTH ANALYTICS CONSULTANT [facility] Last Pap Date NA 03/27/2024 4:26 PM HEALTH ANALYTICS CONSULTANT [facility] Last Pap Result First Pap/Unknown 4:26 PM HEALTH ANALYTICS CONSULTANT [facility] Abnormal Pap or [place] Bx in last 5 years No 03/27/2024 4:26 PM HEALTH ANALYTICS CONSULTANT [facility] Menstrual Status Hormonally Suppressed 03/27/2024 4:26 PM HEALTH ANALYTICS CONSULTANT [facility] [place] Bx Done Today No 03/27/2024 4:26 PM HEALTH ANALYTICS CONSULTANT [facility] Additional Information None given 03/27/2024 4:26 PM HEALTH ANALYTICS CONSULTANT [facility] Comment: Cytology is screened at [facility], Central Laboratory - [address], [place] [address] and [facility] - [address], [place] [address] and [facility] - [address] [place] [address] Interpreted at [facility], Central Laboratory - [address], [place] [address] Automated Review Successful 03/27/2024 4:26 PM HEALTH ANALYTICS CONSULTANT [facility] Comment:Specimen processed s uccessfully by automated white sugar syrup operator device, ThinPrep Imaging System, [employer] Note The pap test is a screening technique, not a diagnostic procedure. It is used primarily to screen for squamous cancers and precursor lesions. Published studies have shown that it is subject to both false negative and false positive results. The pap test should not be used as the sole means to diagnose or exclude pre-malignant and malignant lesions. 03/27/2024 4:26 PM HEALTH ANALYTICS CONSULTANT [facility] Other (Cervical) 03/18/2024 4:56 PM HEALTH ANALYTICS CONSULTANT 03/18/2024 4:56 PM HEALTH ANALYTICS CONSULTANT Cris Juarez MD PATHOLOGY/CYTOLOGY Fi nal Result Performing Organization Address [facility] Co de Phone Number [facility] [address] [place] [address], [place] * ANTI HCV (03/18/2024 4:52 PM HEALTH ANALYTICS CONSULTANT) HEPATITIS C ANTIBODY NON-REACTI VE NON-REACT DASHAWN [employer] Comment: HCV antibody was non-reactive. There is no laboratory evidence of HCV infection. In most cases, no further action is required. However, if recent HCV exposure is suspected, a test for HCV RNA (test code 50928) is suggested. For additional information please refer to http://education.SecondMic/faq/VHF33y5 (This link is being provided for informational/ educational purposes only.) Blood BLOOD SPECIMEN / Unknown 03/18/2024 4:52 PM HEALTH ANALYTICS CONSULTANT 03/18/2024 4:52 PM HEALTH ANALYTICS CONSULTANT us Cris Juarez MD SEND OUTS Final Result Performing Organization Address City/[facility] Co de Phone Number [employer] [facility] [id number] [address], [place] [phone] [facility] [address] [place] [address] * ANTI HIV 1/2 (03/18/2024 4:52 PM HEALTH ANALYTICS CONSULTANT) HIV AG/AB, 4TH GEN NON-REACT DASHAWN NON-REACT DASHAWN [facility] Comment: HIV-1 antigen and HIV-1/HIV-2 antibodies were not detected. There is no laboratory evidence of HIV infection. PLEASE NOTE: This information has been disclosed to you from records whose confidentiality may be protected by state law. If your state requires such protection, then the state law prohibits you from making any further disclosure of the information without the specific written consent of the person to whom it pertains, or as otherwise permitted by law. A general authorization for the release of medical or other information is NOT sufficient for this purpose. For additional information please refer to http://education.SecondMic/faq/VTU547 (This link is being provided for informational/ educational purposes only.) The performance of this assay has not been clinically validated in patients less than 2 years old. Blood BLOOD SPECIMEN / Unknown 03/18/2024 4:52 PM HEALTH ANALYTICS CONSULTANT 03/18/2024 4:52 PM HEALTH ANALYTICS CONSULTANT Cris Juarez MD SEND OUTS Final Result [employer] [facility] [address] [place] [address], [facility] [address] [place] [phone] from Last 3 Months or Most Recently Relevant to Health Maintenance Insurance [facility] * Guarantor: SEYMOUR OJEDA Account Type Relation to Patient Date of Phone Billing Address Personal/Family Father [id number] [id number] [facility] [id number] [id number] [id number] [id number] [id number] [id number] Advance Directives * Full Code (Latest Code Status on File) Date Activated Date Inactivated Comments 08/30/2019 3:24 AM 09/03/2019 3:09 PM Question Answer Comments Code Status Discussion: Not Discussed Care Teams Precision Dancer Relationship Specialty Start Date End Date Cris Juarez MD [address] [place] [address] PCP - General Family Practice 08/05/10 Brandan Meneses MD [address] [place] [id number] Consulting Physician Surgery - General 02/03/25 Leonie Matthew RN [address] [place] [id number] Nurse Navigator Registered Nurse 02/03/[address] [address] [place] [address] Burn Out Tender Lace 02/03/25
[2025-03-09 10:44] LABS: Albumin* 4.3 g/dL (3.3-5.0); Chloride* 100 mmol/L (96-114); Potassium* 3.8 mmol/L (3.6-5.1); Sodium* 134 mmol/L (135-149)
[2025-03-09 10:47] LABS: Alanine Aminotransferase* 31 U/L (4-35); Alkaline Phosphatase* 64 U/L (40-150); Aspartate Amino Transferase* 32 U/L (12-35); Bilirubin Total* 0.4 mg/dL (0.1-1.5); Blood Urea Nitrogen* 6 mg/dL (5-24); Creatinine* 0.7 mg/dL (0.5-1.5); Est. Creatinine Clearance* 115.01; Estimated Glomerular Filt Rate 123 ml/min
[2025-03-09 10:48] LABS: Anion Gap 10 mEq/L (7-15); Calcium* 8.6 mg/dL (8.4-10.6); Carbon Dioxide* 24 mmol/L (20-32); Glucose* 93 mg/dL (60-115); Total Protein* 7.5 g/dL (6.0-8.3)
[2025-03-09 10:59] LABS: Immature Granulocytes Abs Auto 0.00 K/uL (0.00-0.30); Lymphocytes Absolute Auto 1.30 K/uL (0.90-2.90); Slide Review Reflex No
--- NOTE | 2025-03-09 11:06 | CRLHL7_ITS ---
For Patients: As a result of the Century Cures Act, medical imaging exams and procedure reports are released immediately into your electronic medical record. You may view this report before your referring provider. If you have questions, please contact your health care provider. Indication: N/V/D Technique: 2 AP views of the abdomen. Three total images. Comparison: None. Findings: Moderate stool burden is seen in the right colon. Nonobstructive bowel gas pattern. No large pneumoperitoneum. Visualized lung bases are clear. Impression: Moderate stool burden is seen in the right colon. Nonobstructive bowel gas pattern. Dictated by Julio Parra MD @ 03/09/2025 11:40:49 AM (Electronically Signed)
--- NOTE | 2025-03-09 19:01 | ED.NURSE ---
Pt called back reporting that the prescription for zofran odt was not received by [facility] in [place]. Called and spoke w/ pharmacist and provided verbal Rx per Dr. Greene's d/c instructions.
== END 2025-03-09 12:13 | disposition home or self-care (01) ==
PROVIDERS: Emergency Provider Family Medicine
DX: R11.2 Nausea with vomiting, unspecified (principal); R19.7 Diarrhea, unspecified
CPT/HCPCS: 36415; 74019; 80053; 81001; 81025; 83605; 85025; 86140; 87086; 87631; 96361; 96374; 99284; J2405; J7030